=== PATIENT | male | born 1960 | race Two or more races ===

== ENCOUNTER 2022-06-19 08:24 | Outpatient (REF) | payer OTHER, SELFPAY ==
[2022-06-19 11:31] LABS: MANUAL DIFF FLAG NO
[2022-06-19 11:36] LABS: Basophils Percent Auto 0.6 % (0-2); Eosinophils Percent Auto 0.6 % (0-4); Hematocrit 46.9 % (42.0-52.0); Hemoglobin 15.5 g/dl (14.0-18.0); Imm Gran Abs Auto 0.03 X10*3/uL (0.00-0.03); Imm Gran Pct Auto 0.5 % (0.0-0.4); Lymphocytes Absolute Auto 2.6 X10*3/uL (1.2-4.9); Lymphocytes Percent Auto 39.4 % (20-40); Mean Corpuscular Volume 93.8 fL (80.0-98.0); Mean Platelet Volume 11.2 fL (9.4-12.4); Monocytes Absolute Auto 0.5 X10*3/uL (0.1-1.2); Monocytes Percent Auto 7.2 % (2-11); Neutrophils Absolute Auto 3.4 x10*3/uL (2.0-8.3); Neutrophils Percent Auto 51.7 % (45-73); Platelet Count 200 X10*3/uL (160-400); Red Cell Distribution Width 12.4 % (11.0-16.0); White Blood Count 6.6 X10*3/uL (4.8-10.8)
[2022-06-19 12:37] LABS: Alanine Aminotransferase 23 U/L (0-40); Albumin Level 4.8 g/dL (3.5-5.0); Alkaline Phosphatase 73 U/L (39-117); Anion Gap 13 (12-20); Aspartate Amino Transferase 22 U/L (5-37); Bilirubin Total 4.1 mg/dL (0.0-1.0); Blood Urea Nitrogen 16 mg/dL (9-16); Carbon Dioxide 27 mmol/L (22-29); Chloride 108 mmol/L (96-108); Cholesterol 187 mg/dL; Estimated Glomerular Filt Rate > 60; Glucose Fasting 108 mg/dL (60-99); HDL Cholesterol 51 mg/dL; LDL Cholesterol Calculated 121 mg/dl; PSA,Total (Free>4and<10) 0.92 ng/mL (0.00-4.00); Potassium 3.6 mmol/L (3.3-5.1); Sodium 144 mmol/L (135-145); Total Protein 7.6 g/dL (6.5-8.0); Triglycerides 78 mg/dL
== END 2022-06-19 08:25 | disposition home or self-care (01) ==
LOC: HO.HMGCLDS 08:24
PROVIDERS: PCP Internal Medicine; Visit Provider Internal Medicine
DX: Z00.00 Encounter for general adult medical examination without abnormal findings (principal); Z12.5 Encounter for screening for malignant neoplasm of prostate; I25.10 Atherosclerotic heart disease of native coronary artery without angina pectoris; N40.0 Benign prostatic hyperplasia without lower urinary tract symptoms; E78.5 Hyperlipidemia, unspecified
CPT/HCPCS: 36415; 80053; 80061; 84153; 84443; 85025

== ENCOUNTER 2025-01-19 09:26 | Outpatient (AMB) | payer OTHER, SELFPAY ==
--- NOTE | 2025-01-19 09:32 | A.OFFPC_ITS ---
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 Note: Pt is here today as a New Patient with chronic depression and anxiety Accompanied by: Self / Same As Patient Allergies No Known Allergies Allergy (Verified 01/19/25 09:33) Tobacco use date assessed: 01/19/25 Fall risk assessment: No Falls in past year Last assessed Fall Risk: 01/19/25 Dental Screening Dental Screen Date: 01/19/25 Did you have a dental visit in the last 12 months?: No PFSH Medical History (Updated 01/19/25 @ 10:52 by Noe Mckeon MD) Exertional dyspnea Bradycardia Insomnia Anxiety and depression Surgical History (Updated 01/19/25 @ 10:09 by Noe Mckeon MD) History of heart artery stent Family History Father Prostate CA, Onset Age: 86 Brother No problems noted. Brother No problems noted. Brother No problems noted. Brother Substance use disorder Brother No problems noted. Brother No problems noted. Brother No problems noted. Brother No problems noted. Sister Breast CA Sister No problems noted. Sister No problems noted. Sister No problems noted. Sister No problems noted. Sister No problems noted. Sister No problems noted. Sister No problems noted. Mother DM type 2 (diabetes mellitus, type 2) Social History Household Members Other:: lives alone, 2 adult children in [facility], on disability for depression Housing: Apartment Patient Tobacco Use Status: Never used Tobacco e-Cigarette/Vaping Use: Currently Using service: No Current occupational status: disabled Cognitive needs: No Hearing needs: No Vision needs: Yes (reading glasses) Questionnaire PHQ-9 Over the last 2 weeks, how often have you been bothered by any of the following problems? 1. Little interest or pleasure in doing things: nearly every day 2. Feeling down, depressed, or hopeless: nearly every day 3. Trouble falling or staying asleep, or sleeping too much: nearly every day 4. Feeling tired or having little energy: nearly every day 5. Poor appetite or overeating: nearly every day 6. Feeling bad about yourself - or that you are a failure or have let yourself or your family down: nearly every day 7. Trouble concentrating on things, such as reading the newspaper or watching television: nearly every day 8. Moving or speaking so slowly that other people could have noticed. Or the opposite - being so fidgety or restless that you have been moving around a lot more than usual: nearly every day 9. Thoughts that you would be better off or of hurting yourself in some way: nearly every day Total score: 27 Depression Screening Interpretation: Positive Depression Screening Done: Yes Source: Developed by Drs. Eliseo Braxton, Vanessa Ellison, Sreekanth Cuellar and colleagues, with an educational suzie from [employer]. Thrive Questionnaire Date Thrive assessed: 01/19/25 I am a: Patient What is your living situation today?: I have a place to live, but I am worried about losing it in the future Within the past 12 months, did the food you bought not last and you didn't have the money to get more?: Often true Within the past 12 months, did you worry whether your food would run out before you got money to buy more?: Often true Do you have trouble paying for medicines?: Yes Do you have trouble getting transportation to medical appointments?: Yes Do you have trouble paying your heating and electricity bill?: No Do you have trouble taking care of your child, family member or friend?: I choose not to answer this question Do you have trouble with day-to-day activities such as bathing, preparing meals, shopping, managing finances, etc.?: Yes Are you currently unemployed and looking for a job?: Yes Are you interested in more education?: I choose not to answer this question Please select the resources that you would like help with: Housing/Fdc, Food, Transportation, Care for elder or disabled and Daily support Currently or been in a relationship where the following occur: Controlled Financially and Controlled Emotionally THRIVE Score: 6 AUDIT C Alcohol Use Questionnaire (AUDIT-C) 1. How often do you have a drink containing alcohol?: Never Total Score: 0 GEORGE-7 AMB Questionnaire GEORGE-7 Date GEORGE - 7 assessed: 01/19/25 Feeling nervous, anxious, or on edge: 2 = More than half the days Not being able to stop or control worryin = More than half the days Worrying too much about different things: 2 = More than half the days Trouble relaxin = Nearly every day Being so restless that it is hard to sit still: 2 = More than half the days Becoming easily annoyed or irritable: 2 = More than half the days Feeling afraid as if something awful might happen: 2 = More than half the days Total GEORGE-7 score (0-4 normal; 5-9 mild; 10-14 moderate; 15-21 severe): 15 Source: Developed by Drs. Eliseo Braxton, Vanessa Ellison, Sreekanth Cuellar and colleagues, with an educational suzie from [employer]. Physical exam (Primary Care) Vital Signs: Last Vital Signs Temp 98.1 F 01/19/25 09:38 Pulse 59 01/19/25 09:38 BP 136/65 01/19/25 09:38 Pulse Ox 96 01/19/25 09:38 Oxygen Delivery Method Room Air 01/19/25 09:38 BMI result Body Mass Index 25.9 Tobacco/Smoking Status: Tobacco use Status Tobacco use date assessed 01/19/25 01/19/25 09:34 Patient Tobacco Use Status Never used Tobacco 01/19/25 09:42 e-Cigarette/Vaping Use Currently Using 01/19/25 09:34 PHQ-9: PHQ-9 Score PHQ-9: Total score 27 01/19/25 10:03 Depression Screening Interpretation: Positive Thrive Assessment: Date of Thrive Assessment Date Thrive assessed 01/19/25 01/19/25 09:34 Currently or been in a relationship where the following occur: Controlled Financially and Controlled Emotionally Office Procedures Flu Questionnaire Does the patient have a severe egg allergy?: No Does the patient have severe life threatening allergies?: No Does the patient have a fever or illness today?: No Has the patient ever had Guillain-Lehigh Syndrome?: No Has the patient ever had any past reaction to a flu shot?: No Immunizations Fluarix (PF) 45 mcg (15 mcg x 3)/0.5 mL IM syringe Performing Provider: Noe Mckeon MD Performing Location: [facility] Administered by: Jeri Field CMA on 01/19/25 09:45 Dose Route Admin Location Dispensed Lot Number Expiration Date NDC Reception Clerk 0.5 mL IM Right Deltoid 0.5 mL [id number] 08/09/25 [id number] [employer] VIS Given Date VIS Provided VIS Publication Date 01/19/25 Single Vaccine 24 Eligibility Eligibility Date Funding Source Not [place] Eligible 01/19/25 Private Coding Diagnoses Insomnia G47.00 Bradycardia R00.1 CAD (coronary artery disease) I25.10 History of heart artery stent Z95.5 Hypothyroidism E03.9 Assessment & Plan Assessment & Plan (1) Insomnia: Code(s): G47.00 - Insomnia, unspecified Category: Medical (2) Bradycardia: Code(s): R00.1 - Bradycardia, unspecified Category: Medical (3) CAD (coronary artery disease): Comment: 2020 s/p stent, [facility]. Lee [facility] Code(s): I25.10 - Atherosclerotic heart disease of apache coronary artery without angina pectoris Category: Medical (4) History of heart artery stent: Code(s): Z95.5 - Presence of coronary angioplasty implant and graft Category: Surgical (5) Hypothyroidism: Comment: Used to take 50 mcg of levothyroxine Code(s): E03.9 - Hypothyroidism, unspecified Category: Medical Orders: Orders Influenza [id number] Immunization Today Z23 - Encounter for immunization Complete Blood Count Auto Diff Today Z13.9 - Encounter for screening, unspecified Hepatitis B Surface Antigen Today Z13.9 - Encounter for screening, unspecified Comprehensive Met. Panel Today Z13.9 - Encounter for screening, unspecified Lipid Panel Today Z13.9 - Encounter for screening, unspecified Vitamin B12 and Folate Today Z13.9 - Encounter for screening, unspecified Hemoglobin A1c Today Z13.9 - Encounter for screening, unspecified Magnesium Today Z13.9 - Encounter for screening, unspecified AMB EKG-In Office Today I25.10 - Atherosclerotic heart disease of apache coronary artery without angina pectoris, Z95.5 - Presence of coronary angioplasty implant and graft Syphilis Screen Today Z13.9 - Encounter for screening, unspecified Hepatitis C Antibody Today Z13.9 - Encounter for screening, unspecified TSH reflex Free T4 Today Z13.9 - Encounter for screening, unspecified HIV Ab/Ag Today Z13.9 - Encounter for screening, unspecified UA CC w/rflx Micro + Cult Today Z13.9 - Encounter for screening, unspecified Hepatitis B Surface Antibody Today Z13.9 - Encounter for screening, unspecified Vitamin D 25-OH (D2 and D3) Today Z13.9 - Encounter for screening, unspecified CA echo transthoracic complete Today I25.10 - Atherosclerotic heart disease of apache coronary artery without angina pectoris RT home sleep study Today G47.00 - Insomnia, unspecified XR chest 2V Today R06.09 - Other forms of dyspnea Referrals Behavioral Health Referral F32.A - Depression, unspecified, F41.9 - Anxiety disorder, unspecified Cardiology Referral I25.10 - Atherosclerotic heart disease of apache coronary artery without angina pectoris, Z95.5 - Presence of coronary angioplasty implant and graft
[2025-01-19 09:38] VITALS: BP 136/65; PULSE 59; TEMP 36.7; O2SAT 96; BMI 25.9
== END 2025-01-19 10:23 | disposition home or self-care (01) ==
PROVIDERS: PCP Internal Medicine; Visit Provider Student in an Organized Health Care Education/Training Program
DX: Z23 Encounter for immunization (principal)

== ENCOUNTER 2025-01-19 09:26 | Outpatient (REF) | payer MEDICARE, SELFPAY ==
[2025-01-19 13:52] LABS: MANUAL DIFF FLAG NO
[2025-01-19 14:00] LABS: Hematocrit 47.3 % (42.0-52.0); Hemoglobin 15.3 g/dl (14.0-18.0); Imm Gran Abs Auto 0.03 X10*3/uL (0.00-0.03); Imm Gran Pct Auto 0.4 % (0.0-0.4); Lymphocytes Absolute Auto 2.0 X10*3/uL (1.2-4.9); Mean Corpuscular HGB Conc 32.3 g/dl (31.0-36.0); Mean Corpuscular Hemoglobin 30.2 pg (27.0-33.0); Mean Corpuscular Volume 93.5 fL (80.0-98.0); NRBC Abs Auto 0.000 X10*3/uL (0.0-0.012); NRBC Pct Auto 0.0 /100WBC (0.0-0.2); Platelet Count 196 X10*3/uL (160-400); Red Blood Count 5.06 X10*6/uL (4.60-5.80); White Blood Count 7.4 X10*3/uL (4.8-10.8)
[2025-01-19 14:09] LABS: Appearance Urine Clear; Glucose Urine UA Negative (Negative); PH 5.5 (5.0-9.0); Specific Gravity - Urine 1.020 (1.005-1.025); UMIC TRIGGER UACC YES
[2025-01-19 14:34] LABS: Alanine Aminotransferase 26 U/L (0-40); Albumin Level 4.7 g/dL (3.5-5.0); Alkaline Phosphatase 68 U/L (39-117); Anion Gap 9 (12-20); Aspartate Amino Transferase 35 U/L (5-37); Blood Urea Nitrogen 10 mg/dL (9-16); Calcium 9.3 mg/dL (8.4-10.2); Carbon Dioxide 29 mmol/L (22-29); Chloride 108 mmol/L (96-108); Cholesterol 212 mg/dL (<200); Estimated Glomerular Filt Rate > 60; HDL Cholesterol 55 mg/dL (>40); Magnesium 2.0 mg/dL (1.6-2.6); Potassium 4.0 mmol/L (3.3-5.1); Sodium 142 mmol/L (135-145); Total Protein 7.6 g/dL (6.5-8.0); Triglycerides 167 mg/dL (<150)
[2025-01-19 15:22] LABS: Folate 8.3 ng/mL (> or = 4.0); Vitamin B12 854 pg/mL (200-900)
[2025-01-19 16:58] LABS: Free T4 (Free Thyroxine) 0.84 ng/dL (0.71-1.85)
[2025-01-20 04:15] LABS: Syphilis Screen Nonreactive (Nonreactive)
[2025-01-20 04:57] LABS: HBS Num1 0.16 mIU/mL (0-7.99); HBsAGNum1 0.43 S/CO (0.00-0.99); HIV Num 1 0.06 S/CO (0.00-0.99); Hepatitis B Surface Antigen Negative (Negative); ~HepC Num1 0.08 S/CO (0.00-0.79); ~Hepatitis B Surface Antibody NONREACTIVE (Nonreactive); ~Hepatitis C Antibody Nonreactive (Nonreactive)
[2025-01-24 06:28] LABS: Vitamin D 25-OH, D2 <4 ng/mL; Vitamin D 25-OH, D3 21 ng/mL; Vitamin D 25-OH, Total 21 ng/mL (30-100)
== END 2025-01-19 09:27 | disposition home or self-care (01) ==
LOC: HO.HKASLDS 09:26
PROVIDERS: PCP Student in an Organized Health Care Education/Training Program; Visit Provider Student in an Organized Health Care Education/Training Program
DX: G47.00 Insomnia, unspecified (principal); Z23 Encounter for immunization; R00.1 Bradycardia, unspecified; I25.10 Atherosclerotic heart disease of native coronary artery without angina pectoris; E03.9 Hypothyroidism, unspecified; F41.9 Anxiety disorder, unspecified; F32.A Depression, unspecified; R06.09 Other forms of dyspnea; E78.5 Hyperlipidemia, unspecified; N20.0 Calculus of kidney; N40.0 Benign prostatic hyperplasia without lower urinary tract symptoms; G47.9 Sleep disorder, unspecified; R19.8 Other specified symptoms and signs involving the digestive system and abdomen; Z95.5 Presence of coronary angioplasty implant and graft; Z13.1 Encounter for screening for diabetes mellitus; Z13.31 Encounter for screening for depression; Z13.39 Encounter for screening examination for other mental health and behavioral disorders
CPT/HCPCS: 36415; 80053; 80061; 81001; 81003; 82306; 82607; 82746; 83036; 83735; 84439; 84443; 85025; 86706; 86780; 86803; 87340; 87389; 90471; 90656; 96127; 99202

== ENCOUNTER 2025-02-04 09:30 | Outpatient (AMB) | payer OTHER, SELFPAY ==
--- OUTSIDE RECORDS SUMMARY | 2025-02-04 09:33 | XMS_ITS | Clinical Summary ---
Author Organization [facility] Address [address] [place] [address] Phone Care Team Providers Care Lottery Office Manager Name Role Phone Physician, Pcp Unknown Primary Care Provider Eulalia vailable Allergies Active Allergy Reactions Criticality Noted Date Comments Pollen Extracts 03/29/2024 Medications No known medications Active Problems Problem Noted Date Diagnosed Date Nephrolithiasis 03/29/2024 HTN (hypertension) 03/29/2024 Cardiomyopathy 03/29/2024 Hyperlipidemia 03/29/2024 BPH (benign prostatic hyperplasia) 03/29/2024 Myocardial infarct 03/29/2024 Hypothyroid 03/29/2024 Bipolar 1 disorder 03/29/2024 Surgical History Surgery Date Site/Laterality Comments WISDOM TOOTH EXTRACTION PROCEDURE: HISTORICAL WISDOM TEETH EXTRACTION VASECTOMY PROCEDURE: [place] VASECTOMY UNI/BI SPX W/POSTOP SEMEN EXAMS OTHER SURGICAL HISTORY PROCEDURE: [place] HEMORRHOID NTRNL & XTRNL 1 COLUMN W/FISSURECTO Medical History Medical History Date Comments Depression DX:Depression Anxiety DX:Anxiety Kidney stone DX:Kidney stone Family History Medical History Relation Name Comments Prostate cancer Brother Prostate cancer Father Breast cancer Sister Relation Name Status Comments Brother Father Sister Social History Tobacco Use Types Packs/Day Years Used Date Smoking Tobacco: Never Smokeless Tobacco: Never Alcohol Use Standard Drinks/Week Comments No 0 (1 standard drink = 0.6 oz pur e alcohol) Interpersonal Safety Answer Date Record ed Physical Abuse Unrecognized value 03/29/2024 Verbal Abuse Unrecognized value 03/29/2024 Sex and Gender Information Value Date Recorded Sex Assigned at Male 03/29/2024 12:20 PM EST Legal Sex Male 4:18 AM EST Gender Identity Male 03/29/2024 12:20 PM EST Sexual Orientation Not on file Last Filed Vital Signs Vital Sign Reading Time Taken Comments Blood Pressure 130/80 03/30/2024 8:04 AM EST Pulse 81 03/30/2024 8:04 AM EST Temperature 37.1 C (98.7 F) 03/30/2024 8:04 AM EST Respiratory Rate 17 03/30/2024 8:04 AM EST Oxygen Saturation 99% 03/30/2024 8:04 AM EST Inhaled Oxygen Concentration - - Weight 77.1 kg (170 lb) 03/29/2024 10:04 AM EST Height 180.3 cm (5' 11 ) 03/29/2024 10:04 AM EST Body Mass Index 23.71 03/29/2024 10:04 AM EST Plan of Treatment Health Maintenance Due Date Last Done Comments Colorectal Cancer Screening: Colonoscopy 1960 DTaP,Tdap,and Td Vaccines (1 - Tdap) 10/24/1978 Hepatitis A Vaccines (1 of 2 - Risk 2-dose series) 10/24/1978 Pneumococcal Vaccine: 50+ Years (1 of 1 - PCV) 10/24/2009 RSV Immunization Adult Patients (1 - Risk 50-74 years 1-dose series) 10/24/2009 Zoster Vaccines (1 of 2) 10/24/2009 Hepatitis B Vaccines (1 of 3 - Risk 3-dose series) 2019 Hepatitis C Screening 01/13/2022 Medicare Annual Wellness Visit 01/13/2022 Social Influencers of Health Screening 01/13/2022 Depression Screening 02/11/2024 COVID-19 Vaccine ( season) 2024 06/06/2021, 01/12/2021, 07/05/2020, Additional history exists Influenza Vaccine (#1) 2024 Falls Risk Assessment 03/30/2025 03/30/2024 Hypertension/CHF/CAD Annual BMP Blood Test 03/30/2025 03/30/2024, 03/29/2024, 08/14/2021, Additional history exists Cholesterol Screening (Lipid Panel) 08/14/2026 08/14/2021, 08/14/2021, 03/21/2021 HIB Vaccines Aged Out No longer eligi ble based on patient's age to complete this topic HPV Vaccines Aged Out No longer eligi ble based on patient's age to complete this topic IPV Vaccines Aged Out No longer eligi ble based on patient's age to complete this topic MMR Vaccines Aged Out No longer eligi ble based on patient's age to complete this topic Meningococcal ACWY Vaccine Aged Out N o longer eligible based on patient's age to complete this topic Meningococcal B Vaccine Aged Out No l onger eligible based on patient's age to complete this topic RSV Immunization Patients Under 20 months Aged Out No longer eligible based on patient's age to complete this topic Varicella Vaccines Aged Out No longer eligible based on patient's age to complete this topic Procedures Procedure Name Priority Date/Time Associated Diagnosis Comments BASIC METABOLIC PANEL Routine 03/30/2024 5:27 AM EST from Last 3 Months or Most Recently Relevant to Health Maintenance Results * Basic metabolic panel (03/30/2024 5:27 AM EST) Sodium 142 133 - 145 mmol/L LAB CHEMISTRY METHOD 03/30/2024 7:19 AM [facility] Potassium 3.5 3.5 - 5.5 mmol/L LAB CHEMISTRY METHOD 03/30/2024 7:19 AM [facility] Chloride 110 96 - 110 mmol/L LAB CHEMISTRY METHOD 03/30/2024 7:19 AM [facility] CO2 26 21 - 32 mmol/L LAB CHEMISTRY METHOD 03/30/2024 7:19 AM [facility] Anion Gap 6 3 - 11 LAB CHEMISTRY METHOD 03/30/2024 7:19 AM [facility] Glucose 84 70 - 100 mg/dL LAB CHEMISTRY METHOD 03/30/2024 7:19 AM [facility] BUN 19 5 - 25 mg/dL LAB CHEMISTRY METHOD 03/30/2024 7:19 AM [facility] Creatinine 1.25 0.70 - 1.30 mg/dL LAB CHEMISTRY METHOD 03/30/2024 7:19 AM [facility] eGFR 64 >=60 mL/min/1. 73m2 LAB CHEMISTRY METHOD 03/30/2024 7:19 AM [facility] Comment:Calculation based on the Chronic Kidney Disease Epidemiology Collaboration (CKD-EPI) equation refit without adjustment for race. BUN/Creatinine Ratio 15.2 LAB CHEMISTRY METHOD 03/30/2024 7:19 AM EST [facility] Calcium 8.9 8.5 - 10.5 mg/dL LAB CHEMISTRY METHOD 03/30/2024 7:19 AM EST [facility] Blood Venous blood specimen / Unknown Venipuncture / Unknown 03/30/2024 5:27 AM EST 03/30/2024 6:27 AM EST us Jess Jack STATION INSTALLATION SUPERVISOR LAB BLOOD ORDERABLES Final Resu lt [facility] ([facility] [address] [place] [address], [place] [phone] from Last 3 Months or Most Recently Relevant to Health Maintenance Insurance * Guarantor: Marcin Austin Account Type Relation to Patient Date of Phone Billing Address Personal/Family Self 1960 [id number] [place] [address] [employer] MEDICARE Advance Directives * Full Code - Default (Latest Code Status on File) Date Activated Date Inactivated Comments 03/29/2024 3:39 PM 03/30/2024 2:09 PM This is orde r is used when code status has not been discussed with the patient, or code status is otherwise unknown/unconfirmed To update the patient's code status, place a code status order. Do not modify or discontinue any currently active code status orders. Care Teams Lottery Office Manager Relationship Specialty Start Date End Date Physician, Pcp Unknown PCP - General 03/29/24
[2025-02-04 09:54] VITALS: BP 148/72; PULSE 61; RESP 16; TEMP 36.7; O2SAT 97; BMI 26.0
--- NOTE | 2025-02-04 09:54 | A.OFFPC_ITS ---
Vital Signs 02/04/25 09:54 Height 5 ft 7.44 in Weight 168 lb BMI 26.0 BP 148/72 H Blood Pressure Location Rt brachial Position Sitting Respiration 16 Pulse 61 Pulse Source Pulse Oximeter Temp 98.1 F Temp Source Oral Pulse Oximetry (%) 97 Oxygen Delivery Method Room Air Intake Visit Reasons: 2 wk - lab review Intake Note: Pt is here today as a New Patient with chronic depression and anxiety Accompanied by: Self / Same As Patient Allergies No Known Allergies Allergy (Verified 02/04/25 09:55) Medication List - Last Reconciled 02/04/25 by Noe Mckeon MD No Known Home Meds Tobacco use date assessed: 02/04/25 Fall risk assessment: No Falls in past year Last assessed Fall Risk: 02/04/25 Dental Screening Dental Screen Date: 02/04/25 Did you have a dental visit in the last 12 months?: No HPI HPI Comments History of Present Illness Details History of Present Illness The patient is a 64 year old male presenting with multiple symptoms including jaw cramping and tingling, night sweats, backaches, and blurry vision. Coronary artery disease: The patient has a history of a myocardial infarction in 2020, for which a cardiac catheterization and stent placement were performed. He reports sometimes feeling pain in his chest and can feel his heart beating when sleeping on his side. He is non-adherent with prescribed medications, including aspirin, clopidogrel, lisinopril, metoprolol, and atorvastatin, due to side effects such as nausea. Mental health disorders: The patient has a history of persistent depressive disorder and anxiety. He was hospitalized in 2021 for psychiatric reasons, including suicidal ideations related to feelings of hopelessness, and was diagnosed with depression. He engaged in some outpatient therapy following his hospitalization. He reports significant social isolation for the past 10 years, with no friends, family, or social media interaction. He also has a history of syncope, which was attributed to anxiety. He is currently seeing a therapist but feels he needs a psychologist or psychiatrist instead. Subclinical hypothyroidism: The patient has a history of subclinical hypothyroidism and was previously prescribed levothyroxine, which he no longer takes. Recent labs show a very elevated thyroid-stimulating hormone (TSH) with a normal T4 level, consistent with this diagnosis. Hyperlipidemia: The patient has elevated cholesterol levels. Recent fasting labs revealed triglycerides at 167 mg/dL, total cholesterol at 212 mg/dL, and LDL cholesterol at 124 mg/dL. He is not taking any medication for this condition due to reported side effects. History of nephrolithiasis: The patient has a history of recurrent kidney stones and reports currently passing some stones. In May 2021, he had a left ureteral stone which required stent placement. Recent urinalysis showed microscopic blood, which is attributed to the stones. History of type 2 diabetes mellitus: The patient has a history of diet-controlled diabetes. He achieved remission through weight loss and dietary modifications, including avoiding soda and sugar, and not eating late at night. His recent hemoglobin A1c was 5.4%, indicating his diabetes is well-controlled and not in a prediabetic or diabetic range. Hepatic and pancreatic findings: Medical records from 2021 incidentally revealed a cirrhotic liver morphology and a pancreatic mass, for which the patient does not believe he has had follow-up. He also has a history of alcoholic cirrhosis. Recent labs show a total bilirubin of 1.9 mg/dL, which is elevated, though improved from a previous value of 4.1 mg/dL in 2022. His other liver enzymes are normal. Surgical History: - Cardiac catheterization with stent sivakumar cement - Left ureteral stent placement for gagandeep ey stone (May 2021) - Colonoscopy with biopsy/removal of a t ubular adenoma Medications: - The patient reports he is not currentl y taking any prescribed medications. - He reports a history of taking vitamin s. - He reports intolerance to multiple med ications, including aspirin, clopidogrel, lisinopril, metoprolol, and a statin, citing nausea as a primary side effect. Social History: - Reports social isolation for the past 10 years, stating he has no friends or family, does not talk on the phone, has no social media, and has not texted in a year. - History of obesity, with a previous wa ist size of 62 inches, now down to 32 inches. - Current diet consists of approximately one meal a day. - Past dietary habits included significa nt weight loss through avoiding soda and sugar, eating vegetables, consuming meat occasionally, and not eating late at night. - He is celibate and has not had sex in approximately 12 years. - He reports not going out much, which m ay contribute to his low vitamin D. - History of alcoholic cirrhosis is note d in his medical records. Diagnostic Results: - Labs: - Complete Blood Count (CBC): White bloo d cells, red blood cells, hemoglobin, and hematocrit are normal. - Comprehensive Metabolic Panel (CMP): S odium, potassium, and chloride are normal; renal function is normal; liver enzymes are normal. - Total Bilirubin: 1.9 mg/dL (elevated, cutoff is 1.0 mg/dL), but improved from 4.1 mg/dL in 2022. - Hemoglobin A1c: 5.4%. - Lipid Panel (fasting): Triglycerides 1 67 mg/dL (elevated, normal <150), Total Cholesterol 212 mg/dL (elevated, normal <200), LDL Cholesterol 124 mg/dL (elevated, normal <100). - Vitamin D: Low. - Vitamin B12 and Folate: Normal. - Thyroid Function: Thyroid-stimulating hormone (TSH) is very elevated, T4 is normal, consistent with subclinical hypothyroidism. - Urinalysis: Small amount of microscopi c blood. - Infectious Disease Panel: Negative for syphilis, hepatitis B, hepatitis C, and HIV. - Imaging: - Chest X-ray: Normal. The cardiomediast inal silhouette is normal in size, and lungs are clear. Past Medical History - Coronary artery disease with ischemic cardiomyopathy, status post myocardial infarction in 2020 with stent placement. - Persistent depressive disorder and anx iety, with a history of psychiatric hospitalization in 2021 for suicidal ideation. - Hypertension. - Hypercholesterolemia. - Type 2 diabetes mellitus, diet-control led and currently in remission. - Recurrent nephrolithiasis, with a left ureteral stone requiring a stent in May 2021. - Alcoholic cirrhosis. - Unspecified pancreatic mass pending in vestigation. - Benign prostatic hyperplasia. - Subclinical hypothyroidism. - History of syncope and presyncope, att ributed to anxiety. - History of rectal bleeding with colono scopy identifying hemorrhoids and a tubular adenoma, which was removed. - Anal fissure secondary to constipation . Health Maintenance - He has a history of a colonoscopy for rectal bleeding, which identified and removed a tubular adenoma. - Achieved significant weight loss and r emission of type 2 diabetes through dietary changes. - Referrals for a cardiology evaluation, sleep study, and behavioral health were placed in July. [facility] Medical History (Updated 02/04/25 @ 12:53 by Noe Mckeon MD) Pancreatic mass Ischemic cardiomyopathy Vasovagal episode STEMI (ST elevation myocardial infarction) Gastrointestinal symptoms Sleep disturbance, unspecified Exertional dyspnea Bradycardia Insomnia Anxiety and depression Surgical History (Updated 02/03/25 @ 16:19 by Noe Mckeon MD) S/P drug eluting coronary stent placement History of cardiac cath History of heart artery stent Family History Father Prostate CA, Onset Age: 86 Brother No problems noted. Brother No problems noted. Brother No problems noted. Brother Substance use disorder Brother No problems noted. Brother No problems noted. Brother No problems noted. Brother No problems noted. Sister Breast CA Sister No problems noted. Sister No problems noted. Sister No problems noted. Sister No problems noted. Sister No problems noted. Sister No problems noted. Sister No problems noted. Mother DM type 2 (diabetes mellitus, type 2) Social History Household Members Other:: lives alone, 2 adult children in [facility], on disability for depression Housing: Apartment Patient Tobacco Use Status: Never used Tobacco e-Cigarette/Vaping Use: Currently Using service: No Current occupational status: disabled Cognitive needs: No Hearing needs: No Vision needs: Yes (reading glasses) Questionnaire PHQ-9 Over the last 2 weeks, how often have you been bothered by any of the following problems? 1. Little interest or pleasure in doing things: nearly every day 2. Feeling down, depressed, or hopeless: nearly every day 3. Trouble falling or staying asleep, or sleeping too much: nearly every day 4. Feeling tired or having little energy: nearly every day 5. Poor appetite or overeating: nearly every day 6. Feeling bad about yourself - or that you are a failure or have let yourself or your family down: nearly every day 7. Trouble concentrating on things, such as reading the newspaper or watching television: nearly every day 8. Moving or speaking so slowly that other people could have noticed. Or the opposite - being so fidgety or restless that you have been moving around a lot more than usual: nearly every day 9. Thoughts that you would be better off or of hurting yourself in some way: nearly every day Total score: 27 Depression Screening Interpretation: Positive Depression Screening Done: Yes Source: Developed by Drs. Eliseo Braxton, Vanessa Ellison, Sreekanth Cuellar and colleagues, with an educational suzie from [employer]. Thrive Questionnaire Date Thrive assessed: 02/04/25 I am a: Patient What is your living situation today?: I have a place to live, but I am worried about losing it in the future Within the past 12 months, did the food you bought not last and you didn't have the money to get more?: Often true Within the past 12 months, did you worry whether your food would run out before you got money to buy more?: Often true Do you have trouble paying for medicines?: Yes Do you have trouble getting transportation to medical appointments?: Yes Do you have trouble paying your heating and electricity bill?: No Do you have trouble taking care of your child, family member or friend?: I choose not to answer this question Do you have trouble with day-to-day activities such as bathing, preparing meals, shopping, managing finances, etc.?: Yes Are you currently unemployed and looking for a job?: Yes Are you interested in more education?: I choose not to answer this question Currently or been in a relationship where the following occur: Controlled Financially and Controlled Emotionally THRIVE Score: 6 AUDIT C Alcohol Use Questionnaire (AUDIT-C) 1. How often do you have a drink containing alcohol?: Never Total Score: 0 GEORGE-7 AMB Questionnaire GEORGE-7 Date GEORGE - 7 assessed: 02/04/25 Feeling nervous, anxious, or on edge: 2 = More than half the days Not being able to stop or control worryin = More than half the days Worrying too much about different things: 2 = More than half the days Trouble relaxin = Nearly every day Being so restless that it is hard to sit still: 2 = More than half the days Becoming easily annoyed or irritable: 2 = More than half the days Feeling afraid as if something awful might happen: 2 = More than half the days Total GEORGE-7 score (0-4 normal; 5-9 mild; 10-14 moderate; 15-21 severe): 15 Source: Developed by Vanessa Nur, Sreekanth Cuellar and colleagues, with an educational suzie from [employer]. Review of Systems Narrative Review of Systems - Constitutional: Reports night sweats. - Eyes: Reports blurry vision, especially in one eye. - Cardiovascular: Reports chest pain. - Gastrointestinal: Reports nausea with medication and constipation leading to an anal fissure. - Genitourinary: Reports passing kidney stones. - Musculoskeletal: Reports backaches. - Neurological: Reports jaw cramping and tingling; history of syncope. - Skin: Reports sweaty palms. - Psychiatric: Reports feelings of depression and anxiety; history of suicidal ideation. 10-point ROS reviewed and negative except as noted in HPI Physical exam (Primary Care) Vital Signs: Last Vital Signs Temp 98.1 F 02/04/25 09:54 Pulse 61 02/04/25 09:54 Resp 16 02/04/25 09:54 BP 148/72 H 02/04/25 09:54 Pulse Ox 97 02/04/25 09:54 Oxygen Delivery Method Room Air 02/04/25 09:54 BMI result Body Mass Index 26.0 Tobacco/Smoking Status: Tobacco use Status Tobacco use date assessed 02/04/25 02/04/25 10:00 Patient Tobacco Use Status Never used Tobacco 02/04/25 10:00 e-Cigarette/Vaping Use Currently Using 02/04/25 10:00 PHQ-9: PHQ-9 Score PHQ-9: Total score 27 02/04/25 10:22 Depression Screening Interpretation: Positive Thrive Assessment: Date of Thrive Assessment Date Thrive assessed 02/04/25 02/04/25 10:00 Currently or been in a relationship where the following occur: Controlled Financially and Controlled Emotionally Narrative Physical Exam General: Well-appearing, in no acute distress. Vital signs: Within normal limits. HEENT: Normocephalic, atraumatic. PERRLA, EOMI. Conjunctiva clear, sclera anicteric. Oropharynx clear, mucous membranes moist. TMs intact bilaterally. Neck: Supple, no lymphadenopathy, no thyromegaly, no JVD or carotid bruits. Cardiovascular: RRR, normal S1/S2, no murmurs, rubs, or gallops. Peripheral pulses 2+ and symmetric. No edema. Respiratory: Lungs clear to auscultation bilaterally, no wheezes, rales, or rhonchi. Normal effort. Abdomen: Soft, non-tender, non-distended. Normoactive bowel sounds. No hepatosplenomegaly, no masses. MSK: Full range of motion, no joint swelling or deformity. Normal gait. Skin: Warm, dry, intact. No rashes, lesions, or pallor. Neuro: Alert and oriented x3. Cranial nerves II-XII intact. Strength 5/5 throughout. Sensation intact. Reflexes 2+ symmetric. Normal coordination and gait. Psych: Appropriate mood and affect. Normal judgment and insight. History of persistent depressive disorder and anxiety. Recent suicidal ideations with a plan for outpatient therapy. Coding Level of Care Code Est Pt Level 3 (40175) Add On Problem Visit Only Diagnoses Depression F32.A Anxiety and depression F41.9; F32.A Hypertension I10 CAD (coronary artery disease) I25.10 History of heart artery stent Z95.5 Diabetes type 2 E11.9 Alcoholic cirrhosis of liver K70.30 Total bilirubin, elevated R17 Hypothyroidism E03.9 Subclinical hypothyroidism E03.8 Microscopic hematuria R31.29 Hyperlipemia E78.5 Dyslipidemia E78.5 Pancreatic mass K86.89 History of nephrolithiasis Z87.442 Cirrhosis of liver K74.60 Low vitamin D level R79.89 Assessment & Plan Assessment & Plan (1) Depression: Code(s): F32.A - Depression, unspecified Category: Medical (2) Anxiety and depression: Code(s): F41.9 - Anxiety disorder, unspecified; F32.A - Depression, unspecified Category: Medical (3) Hypertension: Code(s): I10 - Essential (primary) hypertension Category: Medical (4) CAD (coronary artery disease): Comment: 2020 s/p stent, [facility] Code(s): I25.10 - Atherosclerotic heart disease of [place] coronary artery without angina pectoris Category: Medical (5) History of heart artery stent: Code(s): Z95.5 - Presence of coronary angioplasty implant and graft Category: Medical (6) Diabetes type 2: Code(s): E11.9 - Type 2 diabetes mellitus without complications Category: Medical (7) Alcoholic cirrhosis of liver: Code(s): K70.30 - Alcoholic cirrhosis of liver without ascites Category: Medical (8) Total bilirubin, elevated: Code(s): R17 - Unspecified jaundice Category: Medical (9) Hypothyroidism: Comment: Used to take 50 mcg of levothyroxine Code(s): E03.9 - Hypothyroidism, unspecified Category: Medical (10) Subclinical hypothyroidism: Code(s): E03.8 - Other specified hypothyroidism Category: Medical (11) Microscopic hematuria: Code(s): R31.29 - Other microscopic hematuria Category: Medical (12) Hyperlipemia: Code(s): E78.5 - Hyperlipidemia, unspecified Category: Medical (13) Dyslipidemia: Code(s): E78.5 - Hyperlipidemia, unspecified Category: Medical (14) Pancreatic mass: Code(s): K86.89 - Other specified diseases of pancreas Category: Medical (15) History of nephrolithiasis: Code(s): Z87.442 - Personal history of urinary calculi Category: Medical (16) Cirrhosis of liver: Code(s): K74.60 - Unspecified cirrhosis of liver Category: Medical (17) Low vitamin D level: Code(s): R79.89 - Other specified abnormal findings of blood chemistry Category: Medical Plan Consent Patient was informed and verbally consented to the use of an ambient scribe for clinic note documentation during this visit. Plan 1. Coronary Artery Disease - A cardiology referral and an order for an echocardiogram were previously placed in July and will be followed up on. - Advised the patient to go to the emergency room for his current chest pain. - The need for antiplatelet and statin therapy was discussed, but the patient reports intolerance due to nausea. 2. Major Depressive Disorder/Anxiety - The patient is currently seeing a therapist but requested a referral to a psychiatrist or psychologist. - A new referral will be placed to Psychiatry for management of major depressive disorder. 3. Pancreatic Mass And Liver Cirrhosis - A referral to Gastroenterology will be sent for follow-up of the pancreatic mass and liver cirrhosis. - An ultrasound of the liver will be ordered. 4. Subclinical Hypothyroidism - Treatment with levothyroxine is indicated due to his coronary artery disease, but the patient reports medication intolerance. - A referral to Endocrinology will be sent for further evaluation and management. 5. Hyperlipidemia - The patient was informed that his fasting triglycerides, total cholesterol, and LDL cholesterol are elevated. - The need for medication was discussed, but this is complicated by his reported intolerance. 6. Vitamin D Deficiency - Labs show a low vitamin D level. - Supplementation is recommended, though the patient's medication intolerance presents a barrier. Discussion Notes I reviewed the patient's extensive medical history from his records and discussed the recent lab and imaging results with him. We discussed his multiple active diagnoses, including coronary artery disease, subclinical hypothyroidism, hyperlipidemia, and the uninvestigated pancreatic mass and liver cirrhosis. I emphasized the importance of treating these conditions, particularly given his cardiac history, but he expressed significant reluctance and reported intolerance (nausea) to nearly all medications, including aspirin, clopidogrel, and statins. Due to his report of current chest pain, I strongly advised him to go to the emergency room if the pain persists. We agreed on a plan to refer him to multiple specialists to manage his complex conditions: Gastroenterology for the pancreatic mass and liver findings, Endocrinology for the hypothyroidism, and Psychiatry for his major depressive disorder, as he requested a psychologist or psychiatrist over a therapist. I informed him I would see him for follow-up in three months. Patient Instructions - If the pain in your chest continues, please go to the emergency room right away. - We are sending referrals for you to see several specialists: a heart doctor (Cardiology), a stomach and liver doctor (Gastroenterology), a hormone doctor (Endocrinology), and a mental health doctor (Psychiatry). Please follow up on these appointments. - We will have you come back to the clinic for a follow-up visit in three months. Medical Decision Making The patient is a 64-year-old male with a complex, multi-system medical history and significant psychiatric comorbidities who presents with vague but concerning symptoms. The most critical issue is his non-adherence to cardioprotective medications (aspirin, clopidogrel, statin) in the setting of known coronary artery disease with a prior stent, which places him at high risk for a future cardiovascular event. His report of chest pain warranted strong advice to seek emergency care. His lab work reveals several untreated conditions requiring management: subclinical hypothyroidism (which should be treated in the setting of CAD), significant hyperlipidemia, and vitamin D deficiency. Furthermore, his history contains high-risk findings from 2021, including an uninvestigated pancreatic mass and cirrhotic liver morphology, that require urgent follow-up. The patient's pervasive medication intolerance, which he attributes to nausea and kidney issues, is a major barrier to care. Given this challenge and the multiplicity of his problems, a multi-pronged specialty referral strategy is the most appropriate course of action. Referrals to Gastroenterology, Endocrinology, and Psychiatry are being initiated to address the pancreatic/liver findings, hypothyroidism, and his severe depression/anxiety, respectively, while a cardiology referral from July will be re-emphasized. Close follow-up in 3 months is planned to coordinate the recommendations from these specialists. Total Time Statement 20 min Total time spent caring for the patient today includes pre-visit chart review, documentation, review of laboratory and diagnostic imaging results, medication reconciliation, medically necessary evaluation, counseling on diagnoses, care coordination, ordering appropriate tests and medications, review of tests performed by other providers, reporting test results to the patient, and communication with other healthcare providers. Orders: Orders CT abdomen w IV con Today K86.89 - Other specified diseases of pancreas US abdomen limited Today K74.60 - Unspecified cirrhosis of liver, R17 - Unspecified jaundice Referrals Psychiatry Referral F32.A - Depression, unspecified, F41.9 - Anxiety disorder, unspecified Gastroenterology Referral K74.60 - Unspecified cirrhosis of liver, K86.89 - Other specified diseases of pancreas Urology Referral N40.0 - Benign prostatic hyperplasia without lower urinary tract symptoms, R31.29 - Other microscopic hematuria, Z87.442 - Personal history of urinary calculi
== END 2025-02-04 10:24 | disposition home or self-care (01) ==
PROVIDERS: PCP Student in an Organized Health Care Education/Training Program; Visit Provider Student in an Organized Health Care Education/Training Program
DX: F32.A Depression, unspecified (principal); F41.9 Anxiety disorder, unspecified; I10 Essential (primary) hypertension; I25.10 Atherosclerotic heart disease of native coronary artery without angina pectoris; Z95.5 Presence of coronary angioplasty implant and graft; E11.9 Type 2 diabetes mellitus without complications; K70.30 Alcoholic cirrhosis of liver without ascites; R17 Unspecified jaundice; E03.9 Hypothyroidism, unspecified; E03.8 Other specified hypothyroidism; R31.29 Other microscopic hematuria; E78.5 Hyperlipidemia, unspecified; K86.89 Other specified diseases of pancreas; Z87.442 Personal history of urinary calculi; K74.60 Unspecified cirrhosis of liver; R79.89 Other specified abnormal findings of blood chemistry